=== PATIENT | male | born 1995 | race Caucasian/White ===

== ENCOUNTER → 2019-03-25 | Outpatient (CLI) | payer OTHER ==
--- NOTE | 2019-03-25 16:06 | XR ---
EXAMINATION TYPE: XR tibia fibula LT DATE OF EXAM: 03/25/2019 COMPARISON: None HISTORY: Pain, box fell on ankle TECHNIQUE: 2 view left tibia and fibula FINDINGS: No acute fractures or dislocations are evident. Joint spaces are preserved. Soft tissues ar e normal. IMPRESSION: 1. Normal left tibia and fibula. 2. Follow-up exams can be performed 7-10 days from acute trauma for continued pain.
--- NOTE | 2019-03-25 16:07 | XR ---
EXAMINATION TYPE: XR foot complete LT DATE OF EXAM: 03/25/2019 COMPARISON: None HISTORY: Box fell on ankle, pain TECHNIQUE: 3 views left foot FINDINGS: Valgus deformity of the distal fourth and fifth digits are present. No acute fractures are evident. The soft tissues are normal. Follow-up exams can be performed 7-10 days from acute trauma for continued pain. IMPRESSION: 1. No acute fractures left foot
== END | disposition home or self-care (01) ==
LOC: RADXRMAIN 13:51
PROVIDERS: ATTEND Emergency Medicine
DX: S90.02XA Contusion of left ankle, initial encounter (principal); S90.32XA Contusion of left foot, initial encounter

== ENCOUNTER → 2019-04-01 | Outpatient (CLI) | payer OTHER ==
--- NOTE | 2019-04-01 15:35 | XR ---
Left leg HISTORY: Left leg pain 2 views of the left leg and 4 images correlated prior exam 03/25/2019 There is no interval change. IMPRESSION: Stable exam. No significant abnormalities evident.
== END | disposition home or self-care (01) ==
LOC: RADXRMAIN 15:14
PROVIDERS: ATTEND Emergency Medicine
DX: S80.12XA Contusion of left lower leg, initial encounter (principal)